=== PATIENT | female | born 1970 | race Caucasian/White ===

== ENCOUNTER 2024-05-12 10:27 | Emergency (ER) | payer BC ==
[~2024-05-12] VITALS: Ht 154.9 cm; Wt 61.8 kg
[~2024-05-12 10:27] MED LIST: CEFUROXIME500 MG PO; FIORICET 50-301 EACH PO; ONDANSETRON ODT4 MG PO
[2024-05-12 10:30] VITALS: PULSE 89; RESP 16; TEMP 97.7
[2024-05-12] MEDS ORDERED: IOPAMIDOL 370 MG/ML 100 ML INFUS..BTL INJ ONE (10:50)
[2024-05-12] MEDS: KETOROLAC TROMETHAMINE 30 MG/ML VIAL IV STA (11:23)
[2024-05-12] MEDS ORDERED: JANUMET 50-1,01 EACH (11:45)
[2024-05-12] MEDS ORDERED: LYRICA75 MG PO (11:45)
[2024-05-12] MEDS: Morphine 4mg INJECTION 4 MG/ML INJ IV ONE (12:59)
[2024-05-12] MEDS ORDERED: HYDROCODON-ACE1 EA11 PO (14:15)
[2024-05-12] MEDS ORDERED: MACROBID 100 M100 MG PO (14:18)
[2024-05-12 14:36] VITALS: BP 110/61; PULSE 75; RESP 18; TEMP 98.3; O2SAT 98
== END 2024-05-12 14:35 | disposition home or self-care (01) ==
LOC: FSED 10:31
DX: R10.32 Left lower quadrant pain (principal); N39.0 Urinary tract infection, site not specified; M54.50 Low back pain, unspecified; E11.9 Type 2 diabetes mellitus without complications; G62.9 Polyneuropathy, unspecified; M79.7 Fibromyalgia; Z98.84 Bariatric surgery status
CPT/HCPCS: 74177; 80048; 81003; 85025; 99283; J1885; J2270; Q9967